=== PATIENT | male | born 1980 | race Caucasian/White ===

== ENCOUNTER 2016-06-17 13:02 | Emergency (ER) | payer OTHER ==
[2016-06-17] MEDS ORDERED: Ketorolac INJ* 60 MG/2 ML VIAL IM ONE (13:34)
--- NOTE | 2016-06-17 13:38 | ED ---
Lower Extremity - HPI Summary HPI Summary: 35 male presents with complaints of left knee and left foot pain after twisting medially while at work just [employer]. 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 He has been able to bear weight and walk although he has to limp. States the left foot pain is at the bottom of his heal. He did not have anything crush his foot or fall on his foot. No concern for fracture or dislocation. Denies previous knee problems. Has not taken anything for the pain. Denies any bruising, swelling, redness or obvious deformity. Denies numbness/tingling and weakness. No previous history of knee problems. Denies back pain, falling and hitting head. - History of Current Complaint Chief Complaint: EDExtremityLower Stated Complaint: LT KNEE COMPLAINT Time Seen by Provider: 06/17/16 13:24 Hx Obtained From: Patient Mechanism Of Injury: Twisted Onset of Pain: Immediate Onset/Duration: Still Present Severity Initially: Moderate Severity Currently: Moderate Pain Intensity: 7 Pain Scale Used: 0-10 Numeric Timing: Constant - worse with movement Location: Is Discrete @ - left medial knee and left bottom of heel Character Of Pain: Sharp - with movement, Aching, Stiffness Associated Signs And Symptoms: Positive: Knee Pain Aggravating Factor(s): Standing, Ambulation, Movement Alleviating Factor(s): Rest Able to Bear Weight: Yes Related History: Occupational Injury - Allergies/Home Medications Allergies/Adverse Reactions: Allergies Allergy/AdvReac Type Severity Reaction Status Date / Time peanuts Allergy Severe Shortness Uncoded 06/17/16 13:05 of Breath PMH/Surg Hx/FS Hx/Imm Hx Endocrine/Hematology History: Reports: Hx Diabetes Denies: Hx Anticoagulant Therapy Cardiovascular History: Reports: Hx Hypercholesterolemia, Hx Hypertension, Other Cardiovascular Problems/Disorders - HX SEVERAL RIB FX Denies: Hx Pacemaker/ICD Respiratory History: Reports: Hx Asthma GI History: Reports: Other GI Disorders - DIVERTICULITIS History: Reports: Hx Benign Prostatic Hyperplasia Musculoskeletal History: Reports: Other Musculoskeletal History - 1 MONTH AGO FELT A POP IN ELBOW WHILE AT WORK Denies: Hx Rheumatoid Arthritis, Hx Osteoporosis Sensory History: Denies: Hx Hearing Aid Neurological History: Denies: Hx Migraine, Hx Peripheral Neuropathy Psychiatric History: Denies: Hx Panic Disorder - Surgical History Surgery Procedure, Year, and Place: [facility] BILATERAL 4 YEARS AGO Infectious Disease History: No Infectious Disease History: Denies: Traveled Outside the [place] in Last 30 Days - Family History Known Family History: Positive: None - Social History Alcohol Use: Weekly Substance Use Type: Reports: None Hx Tobacco Use: Yes - Currently trying to quit Smoking Status (MU): Light Every Day Tobacco Smoker Review of Systems Constitutional: Negative Cardiovascular: Negative Respiratory: Negative Gastrointestinal: Negative Positive: Arthralgia, Myalgia Skin: Negative Neurological: Negative Psychological: Normal All Other Systems Reviewed And Are Negative: Yes Physical Exam Triage Information Reviewed: Yes Vital Signs On Initial Exam: Initial Vitals Temp Pulse Resp BP Pulse Ox 98.4 F 102 17 130/84 96 06/17/16 13:03 06/17/16 13:03 06/17/16 13:03 06/17/16 13:03 06/17/16 13:03 tachycardia noted. recommend re-check BP at PCP. Vital Signs Reviewed: Yes Appearance: Positive: Well-Appearing, Well-Nourished, Pain Distress - minimally unless moving, Obese Skin: Positive: Warm, Skin Color Reflects Adequate Perfusion, Dry, Other - no ecchymosis, erythema, edema or obvious deformity noted. no crepitus or step off. Head/Face: Positive: Normal Head/Face Inspection Eyes: Positive: Normal, Conjunctiva Clear ENT: Positive: Normal ENT inspection, Hearing grossly normal Neck: Positive: Supple, Nontender Respiratory/Lung Sounds: Positive: Clear to Auscultation, Breath Sounds Present Cardiovascular: Positive: Normal, RRR, Pulses are Symmetrical in both Upper and Lower Extremities - 2+ pedal b/l Abdomen Description: Positive: Nontender, No Organomegaly, Soft Bowel Sounds: Positive: Present Musculoskeletal: Positive: Normal, Strength/ROM Intact - however causes pain, worse with flexion, Pain @ - left knee on palpation of medial collateral ligament and medial platella. laxity unable to be tested due to size of patient. difficult to determine., Other - no abnormal appearance of dorsal foot , no discolorations, obvious deformity, tender to touch.. Negative: Limited @, Interruption @, Edema Left, Edema Right Neurological: Positive: Normal, Sensory/Motor Intact, Alert, Oriented to Person Place, Time, CN Intact II-III, Reflexes Intact, NV Bundle Intact Distally, Normal Gait Psychiatric: Positive: Normal Diagnostics - Vital Signs Vital Signs Temp Pulse Resp BP Pulse Ox 04/11/17 13:06 98.4 F 102 17 130/84 96 06/17/16 13:03 98.4 F 102 17 130/84 96 - Laboratory Lab Statement: Any lab studies that have been ordered have been reviewed, and results considered in the medical decision making process. - Radiology left knee Xray Interpretation: No Acute Changes - NO ACUTE OSSEOUS INJURY. IF SYMPTOMS PERSIST, RECOMMEND REPEAT IMAGING. Radiology Interpretation Completed By: Radiologist Re-Evaluation - Re-Evaluation First Eval Re-Evaluation Time: 14:15 Change: Improved - patient feels some relief after toradol Lower Extremity Course/Dx - Course Course Of Treatment: x-ray obtained of left knee and negative. due to PE findings and MICHEAL does not seem appropriate for x-ray of left ankle/foot as it appears to be ligamentous. patient given toradol in ED and had some relief. Patient will be given ibuprofen and knee immbolizer at home. crutches. RICE and referral if symptoms persist for both foot and knee of left LE. - Diagnoses Differential Diagnosis/HQI/PQRI: Positive: Arthritis, Contusion, Dislocation, Fracture (Closed), Sprain, Strain Provider Diagnoses: Sprain of left knee, Foot pain, left, Sprain of foot, left Discharge - Discharge Plan Condition: Stable Disposition: HOME Prescriptions: Ibuprofen TAB* [Motrin TAB* 800 MG] 800 mg PO Q6H PRN #30 tab PRN Reason: Pain Patient Education Materials: Knee Pain (ED), Knee Sprain (ED) Forms: *Work Release Referrals: Chucky Mcneill MD [Primary Care Provider] - David Romo MD [Medical Doctor] - Additional Instructions: Take prescribed ibuprofen to help with pain and inflammation. Ice the area and rest. Elevate to prevent swelling. Refrain from physical activity and refrain from being on feet for long periods of time. Use pain as your guide. Use brace and crutches as needed for support until symptoms improve. If symptoms do not improve please make an appointment with orthopedics for further imaging. Follow up with primary care doctor.
--- NOTE | 2016-06-17 14:01 | RAD ---
HISTORY: Pain injury, left knee COMPARISONS: May 03, 2015 VIEWS: 2, Frontal and lateral views of the left knee FINDINGS: BONE DENSITY: Normal. BONES: There is no displaced fracture. JOINTS: There is no arthropathy. ALIGNMENT: There is no dislocation. SOFT TISSUES: Unremarkable. OTHER FINDINGS: None. IMPRESSION: NO ACUTE OSSEOUS INJURY. IF SYMPTOMS PERSIST, RECOMMEND REPEAT IMAGING.
[2016-06-17 14:32] VITALS: BP 148/79
== END 2016-06-17 14:29 | disposition home or self-care (01) ==
LOC: ED 13:02
DX: S83.92XA Sprain of unspecified site of left knee, initial encounter (principal); S93.602A Unspecified sprain of left foot, initial encounter; X50.1XXA Overexertion from prolonged static or awkward postures, initial encounter; Y92.9 Unspecified place or not applicable; E11.9 Type 2 diabetes mellitus without complications; E78.00 Pure hypercholesterolemia, unspecified; I10 Essential (primary) hypertension; J45.909 Unspecified asthma, uncomplicated; F17.200 Nicotine dependence, unspecified, uncomplicated; Z79.82 Long term (current) use of aspirin
CPT/HCPCS: 96372; 99282; J1885

== ENCOUNTER 2016-08-19 10:07 | Emergency (ER) | payer OTHER ==
[2016-08-19 10:12] VITALS: BP 149/75
--- NOTE | 2016-08-19 11:50 | RAD ---
Indication: RIGHT heel pain began last night while playing basketball. Medial aspect of heel. Comparison: June 21, 2012 Technique: 4 views of the RIGHT hindfoot. Report: Moderate Achilles tendon insertion and large plantar fascia origin bone spurs with interval increase in size. 0.5 cm length amorphous calcification at the level of the plantar fascia 2 cm from the calcaneal origin new compared with the 2013 exam. Negative for fracture or articular malalignment. Mild nonfocal soft tissue swelling. IMPRESSION: Stigmata of chronic plantar fasciitis. Superimposed acute plantar fascia is not excluded. Additionally there is stigmata of chronic insertional Achilles tendinopathy. Correlate with clinical assessment.
--- NOTE | 2016-08-19 13:24 | ED ---
Lower Extremity - HPI Summary HPI Summary: 35 male presents with complaints of right heel and foot pain that began yesterday after running during a softball game. Patient states he has had foot pain in the foot before however has not been as bad as this. Patient states he is able to bear weight and walk however it really increases and worsens his pain. Patient states the pain is sharp and aching. Denies swelling or bruising. Has tried ibuprofen (1 dose) and ice with some relief. Denies any other injuries and did not hit his head of fall. Patient denies open wounds or obvious signs of trauma. No recent antibiotic use. - History of Current Complaint Chief Complaint: EDExtremityLower Stated Complaint: RT HEEL PAIN Time Seen by Provider: 08/19/16 11:25 Hx Obtained From: Patient Mechanism Of Injury: Twisted - running Onset of Pain: Minutes, Post Accident Onset/Duration: Still Present - 1 Severity Initially: Mild Severity Currently: Moderate Pain Intensity: 7 Pain Scale Used: 0-10 Numeric Timing: Constant Location: Is Discrete @ - bottom of right foot/heel Character Of Pain: Aching, Throbbing, Stiffness Associated Signs And Symptoms: Positive: Negative Aggravating Factor(s): Standing, Ambulation, Weight Bearing Alleviating Factor(s): Rest, Ice, OTC Meds Able to Bear Weight: Yes - however causes pain - Allergies/Home Medications Allergies/Adverse Reactions: Allergies Allergy/AdvReac Type Severity Reaction Status Date / Time peanuts Allergy Severe Shortness Uncoded 06/17/16 13:05 of Breath PMH/Surg Hx/FS Hx/Imm Hx Endocrine/Hematology History: Reports: Hx Diabetes Denies: Hx Anticoagulant Therapy Cardiovascular History: Reports: Hx Hypercholesterolemia, Hx Hypertension, Other Cardiovascular Problems/Disorders - HX SEVERAL RIB FX Denies: Hx Pacemaker/ICD Respiratory History: Reports: Hx Asthma GI History: Reports: Other GI Disorders - DIVERTICULITIS History: Reports: Hx Benign Prostatic Hyperplasia Musculoskeletal History: Reports: Other Musculoskeletal History - 1 MONTH AGO FELT A POP IN ELBOW WHILE AT WORK Denies: Hx Rheumatoid Arthritis, Hx Osteoporosis Sensory History: Denies: Hx Hearing Aid Neurological History: Denies: Hx Migraine, Hx Peripheral Neuropathy Psychiatric History: Denies: Hx Panic Disorder - Surgical History Surgery Procedure, Year, and Place: [facility] BILATERAL 4 YEARS AGO - Immunization History Immunizations Up to Date: Yes Infectious Disease History: No Infectious Disease History: Denies: Traveled Outside the [place] in Last 30 Days - Family History Known Family History: Positive: None - Social History Alcohol Use: Weekly Substance Use Type: Reports: None Hx Tobacco Use: Yes - Currently trying to quit Smoking Status (MU): Light Every Day Tobacco Smoker Review of Systems Constitutional: Negative Cardiovascular: Negative Respiratory: Negative Gastrointestinal: Negative Positive: Arthralgia, Myalgia, Decreased ROM - right foot/heel Skin: Negative Neurological: Negative All Other Systems Reviewed And Are Negative: Yes Physical Exam Triage Information Reviewed: Yes Vital Signs On Initial Exam: Initial Vitals Temp Pulse Resp BP Pulse Ox 98.6 F 89 16 149/75 98 08/19/16 10:08 08/19/16 10:08 08/19/16 10:08 08/19/16 10:08 08/19/16 10:08 BP elevated- patient diagnosed with HTN also in pain Vital Signs Reviewed: Yes Appearance: Positive: Well-Appearing, Well-Nourished, Pain Distress - mild Skin: Positive: Warm, Skin Color Reflects Adequate Perfusion, Dry, Soft, Other - no obvious signs of deformity, no ecchymosis, crepitus or step off noted. Negative: Cold, Numb, Pale Head/Face: Positive: Normal Head/Face Inspection Eyes: Positive: Normal, Conjunctiva Clear ENT: Positive: Normal ENT inspection, Hearing grossly normal Neck: Positive: Supple, Nontender Respiratory/Lung Sounds: Positive: Clear to Auscultation, Breath Sounds Present. Negative: Decreased Breath Sounds, Rales, Rhonchi, Stridor, Wheezes Cardiovascular: Positive: Normal, RRR, Pulses are Symmetrical in both Upper and Lower Extremities - 2+ pedal b/l. Negative: Murmur, Rub Musculoskeletal: Positive: Strength/ROM Intact - however causes pain with flexion and extension, worse with extension, strength and sensation intact., Pain @ - tender on palpation of right heel and plantar/bottom side of foot. no sign of bruising at this time, Other - couch test preformed and intact without tenderness on palpation.. Negative: Interruption @, Edema Left, Edema Right Neurological: Positive: Normal, Sensory/Motor Intact - sensation intact, Alert, Oriented to Person Place, Time, CN Intact II-III, Reflexes Intact, NV Bundle Intact Distally, Unable to Assess Gait - due to patient's pain and preference, able to bear weight and was visualized upon entering ED Psychiatric: Positive: Normal AVPU Assessment: Alert Diagnostics - Vital Signs Vital Signs Temp Pulse Resp BP Pulse Ox 08/19/16 10:12 98.6 F 87 16 149/75 97 08/19/16 10:08 98.6 F 89 16 149/75 98 - Laboratory Lab Statement: Any lab studies that have been ordered have been reviewed, and results considered in the medical decision making process. - Radiology heel right Xray Interpretation: Positive (See Comments) - Stigmata of chronic plantar fasciitis. Superimposed acute plantar fascia is not excluded. Additionally there is stigmata of chronic insertional Achilles tendinopathy. Correlate with clinical assessment. Radiology Interpretation Completed By: Radiologist Lower Extremity Course/Dx - Course Course Of Treatment: appears patient is suffering from plantar fascitis with an acute injury and exacerbation due to PE findings, HPI and x-ray results. given toradol while in ED and ice. told to continue NSAID and ice at home. instructed on stretches. also given galen bandage for extra support. follow up with PCP. refrain physical activity. patient is aware of worsening signs and symptoms to watch out for. No concern for achilles tendon rupture or fracture at this time. told to follow up with ortho for further evaluation and treatment due to x-ray findings. educated that weight may also be exacerbating condition. - Diagnoses Differential Diagnosis/HQI/PQRI: Positive: Arthritis, Contusion, Dislocation, Fracture (Closed), Sprain, Strain, Tendonitis Provider Diagnoses: Plantar fasciitis of right foot, Strain of right foot Discharge - Discharge Plan Condition: Stable Disposition: HOME Prescriptions: Ibuprofen TAB* [Motrin TAB* 600 MG] 600 mg PO Q6H PRN #30 tab PRN Reason: Pain Patient Education Materials: Plantar Fasciitis (ED), Plantar Fasciitis Exercises (ED) Referrals: Chucky Mcneill MD [Primary Care Provider] - Additional Instructions: Use crutches and do not bear weight for the next 3 days to help heal injury. Take ibuprofen as directed for the next 7 days, starting tomorrow. Take with food to avoid upset stomach. Do stretches as instructed multiple times daily. Wear heel padded shoes or cushioned inserts. Rest, avoid physical activity and ice. If symptoms worsen or new symptoms develop please return. Follow up with orthopedics and primary care doctor for further evaluation.
[2016-08-19] MEDS ORDERED: Ketorolac INJ* 60 MG/2 ML VIAL IM ONE (13:42)
== END 2016-08-19 14:05 | disposition home or self-care (01) ==
LOC: ED 10:07
DX: S96.911A Strain of unspecified muscle and tendon at ankle and foot level, right foot, initial encounter (principal); M72.2 Plantar fascial fibromatosis; X58.XXXA Exposure to other specified factors, initial encounter; Y93.9 Activity, unspecified; Y92.9 Unspecified place or not applicable
CPT/HCPCS: 99282; J1885

== ENCOUNTER 2016-08-29 07:32 | Emergency (ER) | payer OTHER ==
[2016-08-29 08:06] VITALS: BP 123/76
[2016-08-29] MEDS ORDERED: Ondansetron INJ* 2 MG/ML VIAL IV ONE (08:14)
[2016-08-29] MEDS ORDERED: NS 0.9% 1000 ML* 1,000 ML IV ONE (08:14)
[2016-08-29] MEDS ORDERED: Ketorolac INJ* 30 MG/ML 1 ML VIAL IV ONE (08:14)
[2016-08-29 08:45] LABS: Hematocrit 52 % (42-52); Hemoglobin 17.5 g/dl (14.0-18.0); Mean Corpuscular HGB Conc 34 g/dl (31-36); Mean Corpuscular Hemoglobin 28 pg (27-31); Mean Corpuscular Volume 84 fL (80-94); Mean Platelet Volume 9 um3 (7.4-10.4); Red Blood Count 6.16 10^6/ul (4.0-5.4); Red Cell Distribution Width 13 % (10.5-15); White Blood Count 9.7 10^3/ul (3.5-10.8)
[2016-08-29 08:47] LABS: Urine Bilirubin Negative (Negative); Urine Glucose Negative (Negative); Urine Nitrite Negative (Negative)
[2016-08-29 09:01] LABS: Albumin 4.6 g/dL (3.2-5.2); BUN/Creatinine Ratio 28.2 (8-20); C Reactive Protein 7.43 mg/L (< 5.00); Calcium 9.6 mg/dL (8.6-10.3); EGFR African American 160.5 (>60); EGFR Non-African American 124.8 (>60); Potassium 4.1 mmol/L (3.5-5.0); Total Bilirubin 0.7 mg/dL (0.2-1.0); Total Protein 7.6 g/dL (6.4-8.9)
--- NOTE | 2016-08-29 09:04 | RAD ---
INDICATION: Right flank abdominal pain. COMPARISON: Comparison is made with a prior CT of the abdomen and pelvis from July 24, 2014. TECHNIQUE: A CT scan of the abdomen and pelvis was performed without intravenous or oral contrast. Contiguous axial sections were obtained from the lung bases through the symphysis pubis. Images were reconstructed in the coronal and sagittal planes. FINDINGS: The lung bases are clear. No pleural effusion is present. The liver is normal in size without significant focal abnormality on this noncontrast study. No calcific gallstones are seen. The spleen is mildly enlarged and unchanged from the prior exam. The pancreas appears to be within normal limits. The adrenal glands and kidneys appear normal in size. There is mild right perinephric stranding which appears similar to the prior study. No renal calculi or hydronephrosis is seen. No ureteral or bladder calculi are noted. The aorta is normal in caliber without significant calcific plaque. There are mildly prominent bilateral external iliac chain lymph nodes measuring up to 1 cm in transverse dimension which are unchanged from the prior study and therefore likely incidental. There is a small sliding-type hernia. The stomach, small and large bowel appear nondistended. The appendix is within normal limits. There is mild descending and sigmoid diverticulosis. There is no evidence for diverticulitis or colitis. No free intraperitoneal air or fluid is seen. No significant focal osseous abnormality is seen. IMPRESSION: 1. NO EVIDENCE FOR ACUTE FINDING OR CAUSE FOR THE PATIENT'S ABDOMINAL PAIN IS SEEN. 2. MILD SPLENOMEGALY, UNCHANGED.
--- NOTE | 2016-08-29 10:44 | ED ---
Alison Rutherford Auryana, scribed for Jordan Cavazos MD on 08/29/16 at 0820 . Abdominal Pain/Male - HPI Summary HPI Summary: 35 year old male presents with RLQ pain starting suddenly yesterday at work. Patient states that the pain started as a stabbing pain, became dull aching pain last night and upon waking today, was a stabbing pain again. He also has a fever, nausea, decreased appetite, and headache. He reports normal BMs. He denies any issues urinating. Movement, sneezing and coughing aggravate the pain. He is unable to sleep on his stomach due to the pain. He has mild pain with ambulation. PMHx is significant for HTN and diverticulitis. Dr. Mcneill is his PCP. - History of Current Complaint Chief Complaint: EDAbdPain Stated Complaint: LOWER RT ABD PAIN Time Seen by Provider: 08/29/16 08:05 Hx Obtained From: Patient Onset/Duration: Sudden Onset, Lasting Days - yesterday, Still Present, Worse Since - this morning Timing: Constant, Intermittent - intermittently worse - stabbing pain Severity Initially: Mild Severity Currently: Moderate Pain Intensity: 4 Pain Scale Used: 0-10 Numeric Location: Discrete At: RLQ Character: Other: - stabbing, became a dull ache, and this moring returned to a stabbing pain Aggravating Factor(s): Movement, Other: - coughing and sneezing Associated Signs And Symptoms: Positive: Fever - but none on arrival, Decreased Appetite, Nausea, Other - RAMIREZ. Negative: Vomiting - Allergies/Home Medications Allergies/Adverse Reactions: Allergies Allergy/AdvReac Type Severity Reaction Status Date / Time peanuts Allergy Severe Shortness Uncoded 06/17/16 13:05 of Breath PMH/Surg Hx/FS Hx/Imm Hx Endocrine/Hematology History: Reports: Hx Diabetes Denies: Hx Anticoagulant Therapy Cardiovascular History: Reports: Hx Hypercholesterolemia, Hx Hypertension, Other Cardiovascular Problems/Disorders - HX SEVERAL RIB FX Denies: Hx Pacemaker/ICD Respiratory History: Reports: Hx Asthma GI History: Reports: Other GI Disorders - DIVERTICULITIS History: Reports: Hx Benign Prostatic Hyperplasia Musculoskeletal History: Reports: Other Musculoskeletal History - 1 MONTH AGO FELT A POP IN ELBOW WHILE AT WORK, plantar fasciitis Denies: Hx Rheumatoid Arthritis, Hx Osteoporosis Sensory History: Denies: Hx Hearing Aid Neurological History: Denies: Hx Migraine, Hx Peripheral Neuropathy Psychiatric History: Denies: Hx Panic Disorder - Surgical History Surgery Procedure, Year, and Place: CTR BILATERAL 4 YEARS AGO Infectious Disease History: No Infectious Disease History: Denies: Traveled Outside the [place] in Last 30 Days - Family History Known Family History: Positive: Cardiac Disease, Hypertension, Other - INTESTINAL, BREAST AND LUNG CANCER Negative: Diabetes - Social History Occupation: Employed Full-time Lives: Alone Alcohol Use: Weekly Substance Use Type: Reports: None Hx Tobacco Use: Yes - Currently trying to quit Smoking Status (MU): Light Every Day Tobacco Smoker Review of Systems Constitutional: Negative Negative: Fever - reported by patient but none on arrival Eyes: Negative ENT: Negative Cardiovascular: Negative Respiratory: Negative Positive: Abdominal Pain - RLQ, Nausea, Other - decreased appetite. Negative: Vomiting Genitourinary: Negative Musculoskeletal: Negative Skin: Negative Positive: Headache Psychological: Normal All Other Systems Reviewed And Are Negative: Yes Physical Exam Triage Information Reviewed: Yes Vital Signs On Initial Exam: Initial Vitals Temp Pulse Resp BP Pulse Ox 98.2 F 85 16 146/91 96 08/29/16 07:51 08/29/16 07:51 08/29/16 07:51 08/29/16 07:51 08/29/16 07:51 Vital Signs Reviewed: Yes Appearance: Positive: Well-Appearing, No Pain Distress, Obese Skin: Positive: Warm, Skin Color Reflects Adequate Perfusion, Dry Head/Face: Positive: Normal Head/Face Inspection Eyes: Positive: Normal ENT: Positive: Normal ENT inspection Neck: Positive: Supple, Nontender Respiratory/Lung Sounds: Positive: Clear to Auscultation, Breath Sounds Present Cardiovascular: Positive: Normal, RRR, Pulses are Symmetrical in both Upper and Lower Extremities Abdomen Description: Positive: Soft, Other: - tenderness at the RLQ and RUQ Bowel Sounds: Positive: Present Musculoskeletal: Positive: Normal, Strength/ROM Intact Neurological: Positive: Normal, Sensory/Motor Intact Psychiatric: Positive: Normal, Affect/Mood Appropriate Diagnostics - Vital Signs Vital Signs Temp Pulse Resp BP Pulse Ox 08/29/16 08:01 98.4 F 87 18 123/76 94 08/29/16 07:51 98.2 F 85 16 146/91 96 - Laboratory Lab Results: Lab Results 08/29/16 08/29/16 08/29/16 Range/Units 08:30 08:30 08:30 WBC 9.7 (3.5-10.8) 10^3/ul RBC 6.16 H (4.0-5.4) 10^6/ul Hgb 17.5 (14.0-18.0) g/dl Hct 52 (42-52) % MCV 84 (80-94) fL MCH 28 (27-31) pg MCHC 34 (31-36) g/dl RDW 13 (10.5-15) % Plt Count 211 (150-450) 10^3/ul MPV 9 (7.4-10.4) um3 Neut % (Auto) 72.3 (38-83) % Lymph % (Auto) 19.3 L (25-47) % Andrews % (Auto) 6.3 (1-9) % Eos % (Auto) 1.4 (0-6) % Baso % (Auto) 0.7 (0-2) % Absolute Neuts (auto) 7.0 (1.5-7.7) 10^3/ul Absolute Lymphs (auto) 1.9 (1.0-4.8) 10^3/ul Absolute Monos (auto) 0.6 (0-0.8) 10^3/ul Absolute Eos (auto) 0.1 (0-0.6) 10^3/ul Absolute Basos (auto) 0.1 (0-0.2) 10^3/ul Absolute Nucleated RBC 0 10^3/ul Nucleated RBC % 0 Sodium 136 (133-145) mmol/L Potassium 4.1 (3.5-5.0) mmol/L Chloride 104 (101-111) mmol/L Carbon Dioxide 25 (22-32) mmol/L Anion Gap 7 (2-11) mmol/L BUN 20 (6-24) mg/dL Creatinine 0.71 (0.67-1.17) mg/dL Est GFR ( Amer) 160.5 (>60) Est GFR (Non-Af Amer) 124.8 (>60) BUN/Creatinine Ratio 28.2 H (8-20) Glucose 108 H (70-100) mg/dL Lactic Acid (0.5-2.0) mmol/L Calcium 9.6 (8.6-10.3) mg/dL Total Bilirubin 0.70 (0.2-1.0) mg/dL AST 18 (13-39) U/L ALT 37 (7-52) U/L Alkaline Phosphatase 61 (34-104) U/L C-Reactive Protein 7.43 H (< 5.00) mg/L Total Protein 7.6 (6.4-8.9) g/dL Albumin 4.6 (3.2-5.2) g/dL Globulin 3.0 (2-4) g/dL Albumin/Globulin Ratio 1.5 (1-3) Lipase 15 (11.0-82.0) U/L Urine Color Yellow Urine Appearance Cloudy Urine pH 5.0 (5-9) Ur Specific [place] 1.029 (1.010-1.030) Urine Protein Negative (Negative) Urine Ketones Negative (Negative) Urine Blood Negative (Negative) Urine Nitrate Negative (Negative) Urine Bilirubin Negative (Negative) Urine Urobilinogen Negative (Negative) Ur Leukocyte Esterase Negative (Negative) Urine Glucose Negative (Negative) 08/29/16 Range/Units 08:30 WBC (3.5-10.8) 10^3/ul RBC (4.0-5.4) 10^6/ul Hgb (14.0-18.0) g/dl Hct (42-52) % MCV (80-94) fL MCH (27-31) pg MCHC (31-36) g/dl RDW (10.5-15) % Plt Count (150-450) 10^3/ul MPV (7.4-10.4) um3 Neut % (Auto) (38-83) % Lymph % (Auto) (25-47) % Andrews % (Auto) (1-9) % Eos % (Auto) (0-6) % Baso % (Auto) (0-2) % Absolute Neuts (auto) (1.5-7.7) 10^3/ul Absolute Lymphs (auto) (1.0-4.8) 10^3/ul Absolute Monos (auto) (0-0.8) 10^3/ul Absolute Eos (auto) (0-0.6) 10^3/ul Absolute Basos (auto) (0-0.2) 10^3/ul Absolute Nucleated RBC 10^3/ul Nucleated RBC % Sodium (133-145) mmol/L Potassium (3.5-5.0) mmol/L Chloride (101-111) mmol/L Carbon Dioxide (22-32) mmol/L Anion Gap (2-11) mmol/L BUN (6-24) mg/dL Creatinine (0.67-1.17) mg/dL Est GFR ( Amer) (>60) Est GFR (Non-Af Amer) (>60) BUN/Creatinine Ratio (8-20) Glucose (70-100) mg/dL Lactic Acid 0.7 (0.5-2.0) mmol/L Calcium (8.6-10.3) mg/dL Total Bilirubin (0.2-1.0) mg/dL AST (13-39) U/L ALT (7-52) U/L Alkaline Phosphatase (34-104) U/L C-Reactive Protein (< 5.00) mg/L Total Protein (6.4-8.9) g/dL Albumin (3.2-5.2) g/dL Globulin (2-4) g/dL Albumin/Globulin Ratio (1-3) Lipase (11.0-82.0) U/L Urine Color Urine Appearance Urine pH (5-9) Ur Specific [place] (1.010-1.030) Urine Protein (Negative) Urine Ketones (Negative) Urine Blood (Negative) Urine Nitrate (Negative) Urine Bilirubin (Negative) Urine Urobilinogen (Negative) Ur Leukocyte Esterase (Negative) Urine Glucose (Negative) Result Diagrams: 08/29/16 08:30 08/29/16 08:30 Lab Statement: Any lab studies that have been ordered have been reviewed, and results considered in the medical decision making process. - CT ABD/PEL CT Interpretation: Positive (See Comments) - IMPRESSION: 1. NO EVIDENCE FOR ACUTE FINDING OR CAUSE FOR THE PATIENT'S ABDOMINAL PAIN IS SEEN. 2. MILD SPLENOMEGALY, UNCHANGED. CT Interpretation Completed By: Radiologist Re-Evaluation - Re-Evaluation First Eval Re-Evaluation Time: 09:30 Abdominal Pain Fem Course/Dx - Course Course Of Treatment: Mr. Silverio had a fairly sudden onset of RLQ pain with some mild tenderness. His W/U here including labs and CT was negative. We discussed the differential and the plan to treat conservatively and expectantly. - Diagnoses Provider Diagnoses: Abdominal pain Discharge - Discharge Plan Condition: Stable Disposition: HOME Prescriptions: oxyCODONE/Acetamin 5/325 MG* [Percocet 5/325 TAB*] 1 tab PO Q6H PRN #20 tab MDD 4 PRN Reason: Pain Patient Education Materials: Acute Abdominal Pain (ED) Referrals: Chucky Mcneill MD [Primary Care Provider] - 3 Days The documentation as recorded by the Alison jefferson Auryana accurately reflects the service I personally performed and the decisions made by , Jordan Cavazos MD.
== END 2016-08-29 09:40 | disposition home or self-care (01) ==
LOC: ED 07:32
DX: R10.31 Right lower quadrant pain (principal); I10 Essential (primary) hypertension; E78.00 Pure hypercholesterolemia, unspecified; G62.9 Polyneuropathy, unspecified; Z72.0 Tobacco use
CPT/HCPCS: 36415; 74176; 80053; 81003; 83605; 83690; 85025; 86140; 96374; 96375; 99282; J1885; J2405

== ENCOUNTER 2017-01-02 08:49 | Emergency (ER) | payer OTHER ==
[2017-01-02 10:03] LABS: Hematocrit 48 % (42-52); Hemoglobin 16.7 g/dl (14.0-18.0); Mean Corpuscular HGB Conc 35 g/dl (31-36); Mean Corpuscular Hemoglobin 30 pg (27-31); Mean Corpuscular Volume 85 fL (80-94); Mean Platelet Volume 8 um3 (7.4-10.4); Red Cell Distribution Width 13 % (10.5-15); White Blood Count 10.6 10^3/ul (3.5-10.8)
[2017-01-02 10:06] LABS: Urine Bilirubin Negative (Negative); Urine Glucose Negative (Negative); Urine Nitrite Negative (Negative)
[2017-01-02 10:20] LABS: Albumin 4.4 g/dL (3.2-5.2); BUN/Creatinine Ratio 15.4 (8-20); C Reactive Protein 5.16 mg/L (< 5.00); Calcium 9.3 mg/dL (8.6-10.3); EGFR African American 143.3 (>60); EGFR Non-African American 111.4 (>60); Globulin 2.7 g/dL (2-4); Potassium 3.9 mmol/L (3.5-5.0); Total Bilirubin 0.5 mg/dL (0.2-1.0); Total Protein 7.1 g/dL (6.4-8.9)
[2017-01-02] MEDS ORDERED: Iodixanol* (CONTRAST) 320 MG/ML 100 ML SDV IV ONE (10:24)
[2017-01-02 10:28] VITALS: BP 111/76
[2017-01-02] MEDS ORDERED: Ketorolac INJ* 30 MG/ML 1 ML VIAL IV PUSH PRN (10:50)
[2017-01-02] MEDS ORDERED: Ketorolac INJ* 30 MG/ML 1 ML VIAL ONE (10:51)
[2017-01-02] MEDS ORDERED: diPHENhydraMINE IV* 50 MG/ML 1 ml VIAL (BENADRYL) ONE (11:03)
[2017-01-02] MEDS ORDERED: predniSONE TAB* 20 MG ONE (11:04)
[2017-01-02] MEDS ORDERED: predniSONE TAB* 20 MG PO ONE (11:09)
[2017-01-02] MEDS ORDERED: diPHENhydraMINE IV* 50 MG/ML 1 ml VIAL (BENADRYL) IV ONE (11:09)
--- NOTE | 2017-01-02 11:30 | RAD ---
INDICATION: LEFT upper quadrant abdominal pain. Flulike symptoms for 2 days. Upset stomach since last night. COMPARISON: August 29, 2016. TECHNIQUE: Multidetector CT images were obtained from the lung bases to the ischial tuberosities with 150 mL Visipaque 320 IV and oral contrast. Multiplanar reformation. REPORT: Unremarkable visualized inferior thorax. Negative for CT abnormality of the liver, gallbladder, or pancreas. Mildly enlarged spleen measuring 13 cm cephalocaudal length without change. No focal splenic lesions evident. Negative for CT abnormality of the upper GI, small bowel, retrocecal appendix, colon. Negative for ascites, free air, or significant hernias. Normal adrenal glands. Unremarkable kidneys with symmetric nephrograms and pyelograms. Unremarkable nondilated ureters and largely decompressed urinary bladder limiting assessment. Symmetric seminal vesicles. Bilateral inguinal lymph nodes within normal size limits. Negative for lymphadenopathy within the [id number]. Normal diameter abdominal aorta and iliac arteries. Physiologic partial distention of the IVC. No suspicious osseous lesions evident. Degenerative spondylosis at the lower thoracic spine and L5-S1. Mild bilateral hip joint osteoarthritis. IMPRESSION: 1. Normal appendix documented. No pathologic process of the alimentary tract evident. 2. Mild splenomegaly with the spleen measuring 13 cm cephalocaudal without change.
--- NOTE | 2017-01-03 17:34 | ED ---
Magnus Rutherford Thomas, scribed for Rogers Spence MD on 01/02/17 at 0928 . Abdominal Pain/Male - HPI Summary HPI Summary: The pt is a 36 y/o M presenting to the ED c/o upper abd pain that began today at 00:00. The pain is worst in the LUQ. The pain is described as stabbing. The pain comes and goes in waves although it never fully goes away. The pt rates the pain 5/10 in the ED. The pain is aggravated by sitting and bending over. It is alleviated by nothing. 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 Pt is nauseous (today and yesterday). For the last two days, the patient c/o myalgia, fever, sore throat, and headache. Pt denies vomiting and cough. His last meal was last night. The patient is accompanied by three family members. 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 - History of Current Complaint Chief Complaint: EDGeneral Stated Complaint: FLU LIKE SYMPTOMS, STOMACH PAIN Time Seen by Provider: 01/02/17 09:08 Hx Obtained From: Patient, Family/Waiter/Waitress Third Class - three family members are present Onset/Duration: Lasting Hours - osent today at 00:00, Still Present Timing: Constant Pain Intensity: 7 Pain Scale Used: 0-10 Numeric Location: Other - Upper abd Character: Other: - Stabbing Aggravating Factor(s): Other: - Sitting, bending over Alleviating Factor(s): Nothing Associated Signs And Symptoms: Positive: Nausea, Other - Myalgia, fever, sore throat, headache; NEGATIVE: vomiting, cough. Negative: Vomiting - Allergies/Home Medications Allergies/Adverse Reactions: Allergies Allergy/AdvReac Type Severity Reaction Status Date / Time Iodixanol [From Visipaque] Allergy Hives Verified 01/02/17 11:45 peanuts Allergy Severe Shortness Uncoded 06/17/16 13:05 of Breath PMH/Surg Hx/FS Hx/Imm Hx Previously Healthy: No Endocrine/Hematology History: Reports: Hx Diabetes Denies: Hx Anticoagulant Therapy Cardiovascular History: Reports: Hx Hypercholesterolemia, Hx Hypertension, Other Cardiovascular Problems/Disorders - HX SEVERAL RIB FX Denies: Hx Pacemaker/ICD Respiratory History: Reports: Hx Asthma GI History: Reports: Other GI Disorders - DIVERTICULITIS History: Reports: Hx Benign Prostatic Hyperplasia Musculoskeletal History: Reports: Other Musculoskeletal History - 1 MONTH AGO FELT A POP IN ELBOW WHILE AT WORK, plantar fasciitis Denies: Hx Rheumatoid Arthritis, Hx Osteoporosis Sensory History: Denies: Hx Hearing Aid Neurological History: Denies: Hx Migraine, Hx Peripheral Neuropathy Psychiatric History: Denies: Hx Panic Disorder - Surgical History Surgery Procedure, Year, and Place: CTR BILATERAL 4 YEARS AGO Infectious Disease History: No Infectious Disease History: Denies: Traveled Outside the [place] in Last 30 Days - Family History Known Family History: Positive: Cardiac Disease, Hypertension, Other - INTESTINAL, BREAST AND LUNG CANCER Negative: Diabetes - Social History Lives: With Family Alcohol Use: Weekly Substance Use Type: Reports: None Hx Tobacco Use: Yes - Currently trying to quit Smoking Status (MU): Light Every Day Tobacco Smoker Review of Systems Positive: Fever Positive: Sore Throat Negative: Cough Positive: Abdominal Pain - upper, Nausea. Negative: Vomiting Positive: Myalgia Positive: Headache All Other Systems Reviewed And Are Negative: Yes Physical Exam - Summary Physical Exam Summary: VITAL SIGNS: Reviewed. GENERAL: Patient is a well-developed and nourished male who is lying comfortable in the stretcher. Patient is not in any acute respiratory distress. HEAD AND FACE: Normocephalic and atraumatic. EYES: PERRLA, EOMI x 2, No injected conjunctiva. EARS: Hearing grossly intact. Ear canals and tympanic membranes are WNL. MOUTH: Oropharynx within normal limits. NECK: Supple, trachea is midline, no adenopathy, no JVD. CHEST: Symmetric, no tenderness at palpation LUNGS: Clear to auscultation bilaterally. No wheezing or crackles. CVS: RRR, S1 and S2 present, no murmurs or gallops appreciated. ABDOMEN: There is RUQ, LUQ, and epigastric tenderness. Soft. No signs of distention. Positive bowel sounds. No rebound no guarding, and no masses palpated. No abdominal bruit or pulsations. EXTREMITIES: FROM in all major joints, no edema, no cyanosis or clubbing. NEURO: Alert and oriented x 3. No acute neurological deficits. Speech is normal. SKIN: Dry and warm Triage Information Reviewed: Yes Vital Signs On Initial Exam: Initial Vitals Temp Pulse Resp BP Pulse Ox 98.1 F 88 20 133/77 95 01/02/17 09:01 01/02/17 09:01 01/02/17 09:01 01/02/17 09:01 01/02/17 09:01 Vital Signs Reviewed: Yes Diagnostics - Vital Signs Vital Signs Temp Pulse Resp BP Pulse Ox 01/02/17 09:01 98.1 F 88 20 133/77 95 - Laboratory Lab Results: Lab Results 01/02/17 01/02/17 01/02/17 Range/Units 09: 09:50 09:50 WBC 10.6 (3.5-10.8) 10^3/ul RBC 5.60 H (4.0-5.4) 10^6/ul Hgb 16.7 (14.0-18.0) g/dl Hct 48 (42-52) % MCV 85 (80-94) fL MCH 30 (27-31) pg MCHC 35 (31-36) g/dl RDW 13 (10.5-15) % Plt Count 229 (150-450) 10^3/ul MPV 8 (7.4-10.4) um3 Neut % (Auto) 71.5 (38-83) % Lymph % (Auto) 19.8 L (25-47) % Young % (Auto) 7.1 (1-9) % Eos % (Auto) 0.9 (0-6) % Baso % (Auto) 0.7 (0-2) % Absolute Neuts (auto) 7.5 (1.5-7.7) 10^3/ul Absolute Lymphs (auto) 2.1 (1.0-4.8) 10^3/ul Absolute Monos (auto) 0.8 (0-0.8) 10^3/ul Absolute Eos (auto) 0.1 (0-0.6) 10^3/ul Absolute Basos (auto) 0.1 (0-0.2) 10^3/ul Absolute Nucleated RBC 0.01 10^3/ul Nucleated RBC % 0.1 Sodium 135 (133-145) mmol/L Potassium 3.9 (3.5-5.0) mmol/L Chloride 102 (101-111) mmol/L Carbon Dioxide 27 (22-32) mmol/L Anion Gap 6 (2-11) mmol/L BUN 12 (6-24) mg/dL Creatinine 0.78 (0.67-1.17) mg/dL Est GFR ( Amer) 143.3 (>60) Est GFR (Non-Af Amer) 111.4 (>60) BUN/Creatinine Ratio 15.4 (8-20) Glucose 93 (70-100) mg/dL Calcium 9.3 (8.6-10.3) mg/dL Total Bilirubin 0.50 (0.2-1.0) mg/dL AST 14 (13-39) U/L ALT 24 (7-52) U/L Alkaline Phosphatase 62 (34-104) U/L Troponin I 0.00 (<0.04) ng/mL C-Reactive Protein 5.16 H (< 5.00) mg/L Total Protein 7.1 (6.4-8.9) g/dL Albumin 4.4 (3.2-5.2) g/dL Globulin 2.7 (2-4) g/dL Albumin/Globulin Ratio 1.6 (1-3) Lipase 13 (11.0-82.0) U/L Urine Color Urine Appearance Urine pH (5-9) Ur Specific [place] (1.010-1.030) Urine Protein (Negative) Urine Ketones (Negative) Urine Blood (Negative) Urine Nitrate (Negative) Urine Bilirubin (Negative) Urine Urobilinogen (Negative) Ur Leukocyte Esterase (Negative) Urine Glucose (Negative) Influenza A (Rapid) Negative (Negative) Influenza B (Rapid) Negative (Negative) 01/02/17 Range/Units 09:50 WBC (3.5-10.8) 10^3/ul RBC (4.0-5.4) 10^6/ul Hgb (14.0-18.0) g/dl Hct (42-52) % MCV (80-94) fL MCH (27-31) pg MCHC (31-36) g/dl RDW (10.5-15) % Plt Count (150-450) 10^3/ul MPV (7.4-10.4) um3 Neut % (Auto) (38-83) % Lymph % (Auto) (25-47) % Young % (Auto) (1-9) % Eos % (Auto) (0-6) % Baso % (Auto) (0-2) % Absolute Neuts (auto) (1.5-7.7) 10^3/ul Absolute Lymphs (auto) (1.0-4.8) 10^3/ul Absolute Monos (auto) (0-0.8) 10^3/ul Absolute Eos (auto) (0-0.6) 10^3/ul Absolute Basos (auto) (0-0.2) 10^3/ul Absolute Nucleated RBC 10^3/ul Nucleated RBC % Sodium (133-145) mmol/L Potassium (3.5-5.0) mmol/L Chloride (101-111) mmol/L Carbon Dioxide (22-32) mmol/L Anion Gap (2-11) mmol/L BUN (6-24) mg/dL Creatinine (0.67-1.17) mg/dL Est GFR ( Amer) (>60) Est GFR (Non-Af Amer) (>60) BUN/Creatinine Ratio (8-20) Glucose (70-100) mg/dL Calcium (8.6-10.3) mg/dL Total Bilirubin (0.2-1.0) mg/dL AST (13-39) U/L ALT (7-52) U/L Alkaline Phosphatase (34-104) U/L Troponin I (<0.04) ng/mL C-Reactive Protein (< 5.00) mg/L Total Protein (6.4-8.9) g/dL Albumin (3.2-5.2) g/dL Globulin (2-4) g/dL Albumin/Globulin Ratio (1-3) Lipase (11.0-82.0) U/L Urine Color Vero Urine Appearance Cloudy Urine pH 5.0 (5-9) Ur Specific [place] 1.030 (1.010-1.030) Urine Protein Negative (Negative) Urine Ketones Negative (Negative) Urine Blood Negative (Negative) Urine Nitrate Negative (Negative) Urine Bilirubin Negative (Negative) Urine Urobilinogen Negative (Negative) Ur Leukocyte Esterase Negative (Negative) Urine Glucose Negative (Negative) Influenza A (Rapid) (Negative) Influenza B (Rapid) (Negative) Result Diagrams: 01/02/17 09:50 01/02/17 09:50 Lab Statement: Any lab studies that have been ordered have been reviewed, and results considered in the medical decision making process. - CT CT Abd/Pel CT Interpretation: No Acute Changes - 1. Normal appendix documented. No pathologic process of the alimentary tract evident. 2. Mild splenomegaly with the spleen measuring 13 cm cephalocaudal without change. ED Physician has reviewed this report and agrees. CT Interpretation Completed By: Radiologist Re-Evaluation - Re-Evaluation First Eval Re-Evaluation Time: 11:00 Change: Worse Comment: The patient has developed diffuse hives. Abdominal Pain Fem Course/Dx - Course Assessment/Plan: The pt is a 36 y/o M presenting to the ED c/o upper abd pain that began today at 00:00. The pain is worst in the LUQ. The pain is described as stabbing. The pain comes and goes in waves although it never fully goes away. The pt rates the pain 5/10 in the ED. The pain is aggravated by sitting and bending over. It is alleviated by nothing. 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 Pt is nauseous (today and yesterday). For the last two days, the patient c/o myalgia, fever, sore throat, and headache. Pt denies vomiting and cough. His last meal was last night. The patient is accompanied by three family members. 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 Test results are without significant abnormality. Influenza A and B are negative. CT Abd/Pel shows 1. Normal appendix documented. No pathologic process of the alimentary tract evident. 2. Mild splenomegaly with the spleen measuring 13 cm cephalocaudal without change. After the patient had his CT, the patient developed a rash consisting of hives on his forehead, possibly secondary to an IV dye allergic reaction. The patient was given IV fluids, Benadryl, and prednisone for the symptoms and the symptoms resolved. The patient was observed for two hours and the symptoms did not return. The patient was given Toradol for the pain and his abdominal pain resolved. The patient is asymptomatic, denies pain, has no nausea or vomiting, and therefore he will be discharged home with follow up by primary care. He was instructed to return if symptoms worsen or return. He understands and agrees. - Diagnoses Differential Diagnosis/HQI/PQRI: Bowel Obstruction, Constipation, Diverticulitis , Renal Colic, Urinary Tract Infection Provider Diagnoses: Abdominal pain, Allergic reaction to dye Discharge - Discharge Plan Condition: Stable Disposition: HOME Prescriptions: Omeprazole CAP* [Prilosec CAP* 20 MG] 20 mg PO BID #20 cap. diPHENhydraMINE PO* [Benadryl PO 25 MG TAB*] 25 mg PO TID PRN #30 tab PRN Reason: Allergy Symptoms predniSONE TAB* [Deltasone TAB*] 20 mg PO DAILY #4 tab Patient Education Materials: Abdominal Pain (ED), General Allergic Reaction (ED ) Referrals: Chucky Mcneill MD [Primary Care Provider] - 3 Days Additional Instructions: Follow up with your primary care provider in 3 days. Return to the emergency department for any new or worsening symptoms. The documentation as recorded by the Magnus jefferson Thomas accurately reflects the service I personally performed and the decisions made by , Rogers Spence MD.
== END 2017-01-02 11:52 | disposition home or self-care (01) ==
LOC: ED 08:49
DX: R10.12 Left upper quadrant pain (principal); T78.49XA Other allergy, initial encounter; X58.XXXA Exposure to other specified factors, initial encounter; Y92.9 Unspecified place or not applicable; E11.9 Type 2 diabetes mellitus without complications; E78.00 Pure hypercholesterolemia, unspecified; J45.909 Unspecified asthma, uncomplicated; K57.92 Diverticulitis of intestine, part unspecified, without perforation or abscess without bleeding; Z72.0 Tobacco use
CPT/HCPCS: 36415; 74177; 80053; 81003; 83690; 84484; 85025; 86140; 87502; 96374; 96375; 99283; J1200; J1885; J7512; Q9967

== ENCOUNTER 2017-05-01 17:13 | Emergency (ER) | payer MEDICAID, OTHER ==
--- NOTE | 2017-05-01 19:00 | RAD ---
INDICATION: Right rib injury COMPARISON: None TECHNIQUE: Multiple views of the ribs were obtained. FINDINGS: Bones: There is no evidence of acute rib fracture. LUNGS: The lungs are clear. There is no pneumothorax. Pleural spaces: There is no evidence of hemothorax. Other: None IMPRESSION: NEGATIVE EXAMINATION
[2017-05-01 19:06] LABS: ABS Basophils 0.1 10^3/ul (0-0.2); ABS Eosinophils 0.1 10^3/ul (0-0.6); ABS Lymphocytes 2.3 10^3/ul (1.0-4.8); ABS Monocytes 0.6 10^3/ul (0-0.8); ABS Neutrophils 8.1 10^3/ul (1.5-7.7); ABS Nucleated RBC 0.1 10^3/ul; Eosinophil % 1.2 % (0-6); Hematocrit 48 % (42-52); Hemoglobin 16.7 g/dl (14.0-18.0); Lymphocyte % 20.9 % (25-47); Mean Corpuscular HGB Conc 35 g/dl (31-36); Mean Corpuscular Hemoglobin 30 pg (27-31); Mean Corpuscular Volume 85 fL (80-94); Mean Platelet Volume 9 um3 (7.4-10.4); Nucleated Red Blood Cells % 0.6; Platelet Count 210 10^3/ul (150-450); Red Blood Count 5.65 10^6/ul (4.0-5.4); Red Cell Distribution Width 13 % (10.5-15); White Blood Count 11.3 10^3/ul (3.5-10.8)
[2017-05-01] MEDS ORDERED: Albuterol/Ipratropium NEB.SOL* Albuterol 2.5 MG/Ipratropium 0.5 MG 3 ML INH ONE (19:21)
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
[2017-05-01 19:23] LABS: EGFR Non-African American 109.8 (>60)
[2017-05-01] MEDS ORDERED: predniSONE TAB* 20 MG PO ONE (19:34)
[2017-05-01] MEDS ORDERED: Levofloxacin TAB* 500 MG PO ONE (19:53)
[2017-05-01] MEDS ORDERED: guaiFENesin/CODIEN 100MG-10MG* 5 ML UDC PO ONE (20:00)
[2017-05-01] MEDS ORDERED: A lbuterol Hfa (PREPAK) 1 MDI - ED TAKE HOME DISPENSING ONLY INHH ONE (20:46)
[2017-05-01 21:00] VITALS: BP 120/58
== END 2017-05-01 20:59 | disposition home or self-care (01) ==
LOC: ED 17:13
DX: J40 Bronchitis, not specified as acute or chronic (principal); R05 Cough; R07.9 Chest pain, unspecified; E11.9 Type 2 diabetes mellitus without complications; F17.210 Nicotine dependence, cigarettes, uncomplicated
CPT/HCPCS: 36415; 80053; 83880; 84484; 85025; 85379; 86140; 86615; 93005; 94640; 94760; 99282; A9270-GY; J7512

== ENCOUNTER 2017-12-14 08:56 | Emergency (ER) | payer MEDICAID ==
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
[2017-12-14 09:07] VITALS: BP 131/73
--- NOTE | 2017-12-14 09:42 | RAD ---
HISTORY: pain,worst at 3rd metacarpal s/p punching object COMPARISONS: None VIEWS: 6 , Frontal, lateral, and oblique views of the right hand and wrist FINDINGS: BONE DENSITY: Normal. BONES: There is no displaced fracture. JOINTS: There is no arthropathy. ALIGNMENT: There is no dislocation. SOFT TISSUES: Unremarkable. OTHER FINDINGS: None. IMPRESSION: NO ACUTE OSSEOUS INJURY. IF SYMPTOMS PERSIST, RECOMMEND REPEAT IMAGING.
== END 2017-12-14 10:16 | disposition home or self-care (01) ==
LOC: UCEAST 08:56
DX: S63.501A Unspecified sprain of right wrist, initial encounter (principal); S63.91XA Sprain of unspecified part of right wrist and hand, initial encounter; S60.211A Contusion of right wrist, initial encounter; S60.221A Contusion of right hand, initial encounter; F17.210 Nicotine dependence, cigarettes, uncomplicated; J45.909 Unspecified asthma, uncomplicated; Z91.010 Allergy to peanuts; Z91.041 Radiographic dye allergy status; W22.09XA Striking against other stationary object, initial encounter; Y92.9 Unspecified place or not applicable
CPT/HCPCS: 99212; G0463

== ENCOUNTER 2018-12-14 22:11 | Emergency (ER) | payer OTHER ==
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
[2018-12-14] MEDS ORDERED: Lidocaine 1% MPF ** 5 ML VIAL ONE (23:43)
[2018-12-14] MEDS: Lidocaine 1% INJ* 10 MG/ML 30 ML SDV INJ ONE (23:43)
[2018-12-14] MEDS: Tetan/Diph/Pertus SYR(Tdap)* 0.5 ML SYR(BOOSTRIX) use SYR contains LATEX IM ONE (23:44)
[2018-12-14] MEDS: Lidocaine 1% MPF ** 5 ML VIAL INJ ONE (23:56)
[2018-12-15 00:38] VITALS: BP 123/83
== END 2018-12-15 00:36 | disposition home or self-care (01) ==
LOC: ED 22:11
DX: S61.210A Laceration without foreign body of right index finger without damage to nail, initial encounter (principal); Z23 Encounter for immunization; W45.8XXA Other foreign body or object entering through skin, initial encounter; Y92.9 Unspecified place or not applicable; F17.210 Nicotine dependence, cigarettes, uncomplicated; E78.00 Pure hypercholesterolemia, unspecified; Z91.041 Radiographic dye allergy status
CPT/HCPCS: 90471; 90715; 99282